=== PATIENT | male | born 1975 | race Two or more races ===

== ENCOUNTER 2018-01-29 11:10 | Observation (INO) | payer MEDICAID, OTHER ==
[~2018-01-29] VITALS: Ht 165.1 cm; Wt 54.6 kg
[2018-01-29] MEDS ORDERED: SODIUM CHLORIDE 0.9% 1,000 ML IV ONE (11:31)
[2018-01-29] MEDS ORDERED: SODIUM CHLORIDE 0.9% 1,000 ML IVB ONE (11:54)
[2018-01-29 12:01] LABS: Basophils # (auto) 0.1 uL; Basophils % (auto) 0.9 % (0.0-2.0); Eosinophils # (auto) 0.1 uL; Eosinophils % (auto) 1.4 % (0.0-7.0); Hematocrit 49.2 % (41.0-53.0); Hemoglobin 16.3 g/dL (13.5-17.5); Lymphocytes # (auto) 1.9 uL; Lymphocytes % (auto) 30.5 % (10.0-50.0); Mean Corpuscular Hemoglobin 28.3 pg (28.0-32.0); Mean Corpuscular Hgb Conc. 33.2 g/dL (32.0-36.0); Mean Corpuscular Volume 85.4 fL (80.0-100.0); Monocytes # (auto) 0.5 uL; Monocytes % (auto) 8.9 % (0.0-12.0); Neutrophils # (auto) 3.6 uL; Neutrophils % (auto) 58.3 % (37.0-80.0); Platelet Count (auto) 197 10^3/uL (140-450); Red Blood Cells 5.76 10^6/uL (4.5-5.90); Red Cell Distribution Width 13.2 % (11.8-14.3); White Blood Cell 6.1 10^3/uL (4.4-10.8)
[2018-01-29 12:08] LABS: Urine Bacteria NONE SEEN /hpf (None Seen); Urine Blood Negative /uL (Negative); Urine Specific Gravity 1.037 (1.001-1.035); Urine WBC 1 /hpf (0 - 3)
[2018-01-29 12:23] LABS: Albumin 4.1 g/dL (3.4-5.0); BUN/Creatinine Ratio 5.6; Bilirubin, Total 1.9 mg/dL (0.2-1.0); Calcium 8.9 mg/dL (8.5-10.1); Potassium 3.9 mmol/L (3.5-5.1); Total Protein 7.5 g/dL (6.4-8.2)
[2018-01-29 12:33] LABS: Partial Thromboplastin Time 28.8 sec (23.78-33.04); Prothrombin Time 10.7 sec (9.27-12.13)
[2018-01-29 13:30] VITALS: BP 110/88
[2018-01-29] MEDS ORDERED: InsuLIN REG 1unit/0.01ml Soln (100units/ml) SC ONE (14:45)
== END 2018-01-29 15:47 | disposition home or self-care (01) | DRG 420 ==
LOC: ER 11:10 → OVERFLOW 11:11 → ER 15:47
PROVIDERS: ADMIT Family Medicine; ATTEND Family Medicine
DX: E11.65 Type 2 diabetes mellitus with hyperglycemia (principal); E11.42 Type 2 diabetes mellitus with diabetic polyneuropathy
CPT/HCPCS: 36415; 71046; 80053; 81001; 82150; 82962; 83690; 83735; 85025; 85610; 85730; 96360; 96372; 99285; G0378; J1815; 94761

== ENCOUNTER 2018-02-01 15:30 | Inpatient (IN) | payer MEDICAID, OTHER ==
[~2018-02-01] VITALS: Ht 153.7 cm; Wt 57.5 kg
[2018-02-01] MEDS ORDERED: SODIUM CHLORIDE 0.9% 1,000 ML IV ONE ×2 (15:51)
[2018-02-01] MEDS ORDERED: InsuLIN REG 1unit/0.01ml Soln (100units/ml) IV ONE ×2 (16:00→20:15)
[2018-02-01 16:14] LABS: Basophils # (auto) 0.1 uL; Basophils % (auto) 0.8 % (0.0-2.0); Eosinophils # (auto) 0.1 uL; Eosinophils % (auto) 0.8 % (0.0-7.0); Hematocrit 44.4 % (41.0-53.0); Hemoglobin 15.2 g/dL (13.5-17.5); Lymphocytes # (auto) 2.1 uL; Mean Corpuscular Hemoglobin 28.8 pg (28.0-32.0); Mean Corpuscular Hgb Conc. 34.4 g/dL (32.0-36.0); Mean Corpuscular Volume 83.8 fL (80.0-100.0); Monocytes # (auto) 0.6 uL; Monocytes % (auto) 9.2 % (0.0-12.0); Neutrophils # (auto) 3.8 uL; Neutrophils % (auto) 57.2 % (37.0-80.0); Platelet Count (auto) 175 10^3/uL (140-450); Red Cell Distribution Width 13.2 % (11.8-14.3); White Blood Cell 6.7 10^3/uL (4.4-10.8)
[2018-02-01 16:28] LABS: Calcium 9.2 mg/dL (8.5-10.1); Potassium 4.1 mmol/L (3.5-5.1)
[2018-02-01 16:37] LABS: Bilirubin, Total 1.6 mg/dL (0.2-1.0); Total Protein 7.4 g/dL (6.4-8.2)
[2018-02-01] MEDS ORDERED: SODIUM CHLORIDE 0.9% 1,000 ML IVB ONE (20:06)
[2018-02-01 20:29] LABS: Urine Bacteria NONE SEEN /hpf (None Seen); Urine Blood Negative /uL (Negative); Urine Hyaline Cast FEW /lpf (0 - 2); Urine Specific Gravity 1.035 (1.001-1.035); Urine WBC <1 /hpf (0 - 3)
[2018-02-01] MEDS ORDERED: ONDANSETRON HCL 4 MG/2 ML VIAL IV PRN (22:15)
[2018-02-01] MEDS ORDERED: DEXTROSE (50%) 50ML SYRG IV PRN (22:15)
[2018-02-01] MEDS ORDERED: TEMAZEPAM 15 MG CAP PO PRN (22:15)
[2018-02-01] MEDS ORDERED: ACETAMINOPHEN 325 MG TAB PO PRN (22:15)
[2018-02-01] MEDS: SODIUM CHLORIDE 0.9% 1,000 ML IV SCH (22:32)
[2018-02-02] MEDS: ACCU-CHEK COMFORT CURVE STRIP VI SCH ×6 (00:02→21:49)
[2018-02-02] MEDS: InsuLIN REG 1unit/0.01ml Soln (100units/ml) SC SCH ×5 (00:07→17:00)
[2018-02-02 02:20] VITALS: BP 94/59
[2018-02-02 02:45] VITALS: BP 94/59
[2018-02-02] MEDS ORDERED: GABA-339 PO (03:35)
[2018-02-02] MEDS ORDERED: PANC12002 PO (03:35)
[2018-02-02] MEDS ORDERED: METF-370 PO (03:35)
[2018-02-02] MEDS ORDERED: MECL-87 PO (03:35)
[2018-02-02 05:00] VITALS: BP 93/58
[2018-02-02] MEDS: GABAPENTIN 300 MG CAP PO SCH ×3 (05:35→21:49)
[2018-02-02] MEDS: FAMOTIDINE 20 MG TAB PO SCH ×2 (10:14→21:49)
[2018-02-02] MEDS: SODIUM CHLORIDE 0.9% 1,000 ML IV SCH (10:41)
[2018-02-02 12:00] VITALS: BP 95/65
[2018-02-02] MEDS ORDERED: INSULIN LANTUS (GLARGINE) 1 /0.01ml (100units/ml) SC ONE (15:30)
[2018-02-02 15:31] LABS: BUN/Creatinine Ratio 11.8; Calcium 8.1 mg/dL (8.5-10.1); Potassium 3.7 mmol/L (3.5-5.1)
[2018-02-02 16:00] VITALS: BP 117/72
[2018-02-02] MEDS ORDERED: DEXTROSE (50%) 50ML SYRG IV PRN (16:15)
[2018-02-02 21:42] VITALS: BP 102/69
[2018-02-02] MEDS ORDERED: INSULIN LANTUS (GLARGINE) 1 /0.01ml (100units/ml) SC SCH (22:00)
[2018-02-02] MEDS ORDERED: InsuLIN REG 1unit/0.01ml Soln (100units/ml) SC SCH (22:00)
[2018-02-03 04:55] VITALS: BP 106/70
[2018-02-03] MEDS: InsuLIN REG 1unit/0.01ml Soln (100units/ml) SC SCH (06:37)
[2018-02-03] MEDS: GABAPENTIN 300 MG CAP PO SCH (06:37)
[2018-02-03] MEDS: ACCU-CHEK COMFORT CURVE STRIP VI SCH (06:38)
[2018-02-03] MEDS ORDERED: INSULIN LANTUS (GLARGINE) 1 /0.01ml (100units/ml) SC SCH (07:00)
[2018-02-03 07:26] VITALS: BP 102/67
[2018-02-03] MEDS: FAMOTIDINE 20 MG TAB PO SCH (10:48)
== END 2018-02-03 11:00 | disposition home or self-care (01) | DRG 420 ==
LOC: ER 15:30 → OVERFLOW 15:31 → WEST WING 02-02 02:15
PROVIDERS: ADMIT Nurse Practitioner; ATTEND Internal Medicine
DX: E11.65 Type 2 diabetes mellitus with hyperglycemia (principal); K86.1 Other chronic pancreatitis; E11.40 Type 2 diabetes mellitus with diabetic neuropathy, unspecified; E87.1 Hypo-osmolality and hyponatremia; E11.319 Type 2 diabetes mellitus with unspecified diabetic retinopathy without macular edema; E86.0 Dehydration; Z79.4 Long term (current) use of insulin; Z91.19 Patient's noncompliance with other medical treatment and regimen; Z82.49 Family history of ischemic heart disease and other diseases of the circulatory system; Z83.3 Family history of diabetes mellitus
CPT/HCPCS: 36415; 36600; 71045; 80048; 80053; 81001; 82010; 82805; 82962; 83036; 85025; 93005; 96361; 96374; 99291; J1815

== ENCOUNTER 2018-10-20 13:18 | Emergency (ER) | payer MEDICAID ==
[~2018-10-20] VITALS: Ht 162.6 cm; Wt 54.0 kg
[~2018-10-20 13:18] MED LIST: GABA-339 PO; MECL-87 PO; METF-370 PO; METO10TA3 PO; PANC12002 PO
[2018-10-20 13:45] VITALS: BP 109/79
[2018-10-20 14:26] LABS: Basophils # (auto) 0 uL; Basophils % (auto) 0.8 % (0.0-2.0); Eosinophils # (auto) 0 uL; Eosinophils % (auto) 0.8 % (0.0-7.0); Hemoglobin 13.9 g/dL (13.5-17.5); Lymphocytes # (auto) 2.3 uL; Lymphocytes % (auto) 36.1 % (10.0-50.0); Mean Corpuscular Hemoglobin 28.7 pg (28.0-32.0); Mean Corpuscular Hgb Conc. 33.9 g/dL (32.0-36.0); Mean Corpuscular Volume 84.7 fL (80.0-100.0); Monocytes # (auto) 0.7 uL; Neutrophils # (auto) 3.2 uL; Neutrophils % (auto) 51.3 % (37.0-80.0); Nucleated Red Blood Cells % 0.1 %; Platelet Count (auto) 163 10^3/uL (140-450); Red Blood Cells 4.83 10^6/uL (4.5-5.90); Urine WBC None Seen /hpf (0 - 3); White Blood Cell 6.3 10^3/uL (4.4-10.8)
[2018-10-20 14:38] LABS: Potassium 3.3 mmol/L (3.5-5.1)
[2018-10-20 14:41] LABS: Albumin 3.7 g/dL (3.4-5.0); Calcium 8.6 mg/dL (8.5-10.1); Urine Bacteria NONE SEEN /hpf (None Seen); Urine Blood Negative /uL (Negative); Urine Specific Gravity 1.042 (1.001-1.035)
[2018-10-20 14:47] LABS: BUN/Creatinine Ratio 10.5; Total Protein 6.4 g/dL (6.4-8.2)
== END 2018-10-20 18:15 | disposition home or self-care (01) ==
LOC: ER 13:20
DX: E11.65 Type 2 diabetes mellitus with hyperglycemia (principal); Z79.899 Other long term (current) drug therapy; Z79.84 Long term (current) use of oral hypoglycemic drugs
CPT/HCPCS: 36415; 71046; 80053; 81001; 82962; 85025

== ENCOUNTER 2025-02-21 11:00 | Inpatient (IN) | payer MEDICAID ==
[~2025-02-21] VITALS: Ht 165.1 cm; Wt 56.0 kg
[~2025-02-21 11:00] MED LIST changes: -MECL-87 PO; +MECL-90 PO; -PANC12002 PO; +PANC1CAP54 PO
--- NOTE | 2025-02-21 11:10 | ED.PDOC ---
History of Present Illness HPI Comments 50-year-old male brought by paramedics from home because of nausea vomiting which started at 2:00 a.m. this morning. Patient never had symptoms like this in the past. Denies use of marijuana. Does have a history of diabetes for which he takes insulin. Denies any other symptoms. Time Seen by MD: 11:06 Primary Care Provider: GAYLE CANTRELL Reviewed Notes: Nurses Notes, Medications, Allergies Allergies: Coded Allergies: NO KNOWN ALLERGIES (Unverified , 01/29/18) Home Meds Reported Medications Metoclopramide Hcl (Metoclopramide Hcl) 10 Mg Tab, 10 MG PO for nausea for 30 Da ys, MG 06/26/18 Metformin Hydrochloride (Metformin Hcl) 500 Mg Tab, 1000 MG PO BID for 30 Days, MG 06/26/18 Pancreatic Enzymes (Creon) 12,000 Unt Cap, 11502 UNT PO, CAP 02/02/18 Meclizine Hcl (Meclizine Hcl) 25 Mg Tab, 25 MG PO BIDP for 30 Days, MG 02/02/18 Gabapentin (Gabapentin) 600 Mg Tab, 1000 MG PO QID for 30 Days, MG 02/02/18 Information Source: Patient, Emergency Med Personnel Mode of Arrival: EMS Severity: Moderate Timing: Hours Duration: Since onset Past Medical History PAST MEDICAL HISTORY: DM Surgical History: Denies all surgeries Family History Family History: No family hx of DM, No family hx of HTN Social History Smoker: Non-Smoker Alcohol: Denies ETOH Use Drugs: Denies Drug Use Lives In: Home Constitutional: denies: chills, diaphoresis, fatigue, fever, malaise, sweats, weakness, others EENTM: denies: blurred vision, double vision, ear bleeding, ear discharge, ear drainage, ear pain, ear ringing, eye pain, eye redness, hearing loss, mouth pain, mouth swelling, nasal discharge, nose bleeding, nose congestion, nose pain, photophobia, tearing, throat pain, throat swelling, voice changes, others Respiratory: denies: cough, hemoptysis, orthopnea, SOB at rest, shortness of breath, SOB with excertion, stridor, wheezing, others Cardiovascular: denies: chest pain, dizzy spells, diaphoresis, Dyspnea on exertion, edema, irregular heart beat, left arm pain, lightheadedness, palpitations, PND, syncope, others Gastrointestinal: reports: abdominal pain, nausea, vomiting; denies: abdomen distended, blood streaked bowels, constipated, diarrhea, dysphagia, difficulty swallowing, hematemesis, melena, poor appetite, poor fluid intake, rectal bleeding, rectal pain, others Genitourinary: denies: burning, dysuria, flank pain, frequency, hematuria, incontinence, penile discharge, penile sore, pain, testicle pain, testicle swelling, urgency, others Neurological: denies: dizziness, fainting, headache, left sided numbness, left sided weakness, numbness, paresthesia, pre-existing deficit, right sided numbness, right sided weakness, seizure, speech problems, tingling, tremors, weakness, others Musculoskeletal: denies: back pain, gout, joint pain, joint swelling, muscle p ain, muscle stiffness, neck pain, others Integumetry: denies: bruises, change in color, change in hair/nails, dryness, laceration, lesions, lumps, rash, wounds, others Allergic/Immunocompromised: denies: Difficulty Healing, Frequent Infections, Hives, Itching, others Hematologic/Lymphatic: denies: anemia, blood clots, easy bleeding, easy bruising, swollen glands, others Endocrine: denies: excessive hunger, excessive sweating, excessive thirst, excessive urination, flushing, intolerance to cold, intolerance to heat, unexplained weight gain, unexplained weight loss, others Psychiatric: denies: anxiety, bipolar disorder, depression, hopeless, panic disorder, schizophrenia, sleepless, suicidal, others Physical Exam General Appearance: Moderate Distress HEENT: Normal ENT Inspection, Pharynx Normal, TMs Normal Neck: Full Range of Motion, Non-Tender, Normal, Normal Inspection Respiratory: Chest Non-Tender, Lungs Clear, No Accessory Muscle Use, No Respiratory Distress, Normal Breath Sounds Cardiovascular: No Edema, No JVD, No Murmur, No Gallop, Normal Peripheral Pulses, Regular Rate/Rhythm Breast Exam: Deferred Gastrointestinal: Diffuse Genitalia: Deferred Pelvic: Deferred Rectal: Deferred Extremities: No calf tenderness, Normal capillary refill, Normal inspection, Normal range of motion, Non-tender, No pedal edema Musculoskeletal : Apperance: Normal Neurologic: Alert, 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 Was a procedure done?: No Differential Dx Considerations may include: Colitis Electrolyte imbalance X-Ray, Labs, Meds, VS Vital Signs Date Time Temp Pulse Resp B/P (MAP) Pulse Ox O2 Delivery O2 Flow Rate FiO2 02/21/25 12:38 120 19 129/92 02/21/25 12:30 120 16 98 Room Air 02/21/25 12:30 98.3 120 16 129/92 (104) 98 98.3 02/21/25 11:40 98.9 100 24 128/58 100 98.9 Lab Test 02/21/25 12:41 Range/Units White Blood Count 11.3 H 4.4-10.8 10^3/uL Red Blood Count 5.23 4.5-5.90 10^6/uL Hemoglobin 14.8 13.5-17.5 g/dL Hematocrit 43.7 41.0-53.0 % Mean Corpuscular Volume 83.6 80.0-100.0 fL Mean Corpuscular Hemoglobin 28.3 28.0-32.0 pg Mean Corpuscular Hemoglobin Concent 33.9 32.0-36.0 g/dL Red Cell Distribution Width 14.2 11.8-14.3 % Platelet Count 178 140-450 10^3/uL Mean Platelet Volume 10.1 6.9-10.8 fL Neutrophils (%) (Auto) 88.5 H 37.0-80.0 % Lymphocytes (%) (Auto) 6.6 L 10.0-50.0 % Monocytes (%) (Auto) 4.7 0.0-12.0 % Eosinophils (%) (Auto) 0.0 0.0-7.0 % Basophils (%) (Auto) 0.2 0.0-2.0 % Neutrophils # (Auto) 10.0 H 1.6-8.6 10 ^3/uL Lymphocytes # (Auto) 0.7 0.4-5.4 10 ^3/uL Monocytes # (Auto) 0.5 0-1.3 10 ^3/uL Eosinophils # (Auto) 0 0-0.8 10 ^3/uL Basophils # (Auto) 0 0-0.2 10 ^3/uL Nucleated Red Blood Cells 0.1 % Sodium Level 141 136-145 mmol/L Potassium Level 3.6 3.5-5.1 mmol/L Chloride Level 101 98-107 mmol/L Carbon Dioxide Level 25 20-31 mmol/L Anion Gap 15 5-15 Blood Urea Nitrogen 10 9-23 mg/dL Creatinine 0.95 0.700-1.30 mg/dL Glomerular Filtration Rate Calc 98 >90 mL/min BUN/Creatinine Ratio 10.5 10.0-20.0 Serum Glucose 194 H 74-106 mg/dL Calcium Level 9.7 8.7-10.4 mg/dL Current Medications Medications (Trade) Dose Ordered Sig/Cramen Route Start Time Stop Time Status Last Admin Ondansetron HCl (Zofran) 4 mg ONCE ONCE IV 02/21/25 12:00 02/21/25 12:01 DC 02/21/25 12:37 Sodium Chloride 1,000 ml @ 1,000 mls/hr Q1H ONCE IVB 02/21/25 12:00 02/21/25 12:59 DC 02/21/25 12:37 Morphine Sulfate 4 mg ONCE ONCE IV 02/21/25 12:00 02/21/25 12:01 DC 02/21/25 12:38 Patient alert. Complaining of abdominal pain. Vitals stable. Answering questions. CT scan of the abdomen does show colitis. Blood sugar elevated. Establish intravenous access. Was given fluids pain Was given morphine. Was given Zofran. WBC elevated. Was given Zosyn. Was given Flagyl. Explained to the patient. Continue monitoring. Time of 1ST Reevaluation: 17:01 Reevaluation 1ST: Unchanged Patient Education/Counseling: Diagnosis, Treatment, Prognosis Family Education/Counseling: No Family Present SEPSIS Sepsis Screen Physician Orders Urinalysis (02/21/25 11:47) Ct Ab Pel Wo Con-No Oral Or Iv (02/21/25 14:41) Morphine Sulfate Injection (02/21/25 17:00) Ondansetron Hcl (Zofran) (02/21/25 17:00) Vital Signs Date Time Temp Pulse Resp B/P (MAP) Pulse Ox O2 Delivery O2 Flow Rate FiO2 02/21/25 12:38 120 19 129/92 02/21/25 12:30 120 16 98 Room Air 8/21/25 12:30 98.3 120 16 129/92 (104) 98 98.3 02/21/25 11:40 98.9 100 24 128/58 100 98.9 Laboratory Tests Test 02/21/25 12:41 White Blood Count 11.3 10^3/uL (4.4-10.8) H Medications Medications Dose Ordered Sig/Carmen Route Start Time Stop Time Status Last Admin Dose Admin Morphine Sulfate 4 mg ONCE ONCE IV 02/21/25 12:00 02/21/25 12:01 DC 02/21/25 12:38 Ondansetron HCl 4 mg ONCE ONCE IV 02/21/25 12:00 02/21/25 12:01 DC 02/21/25 12:37 Sodium Chloride 1,000 ml @ 1,000 mls/hr Q1H ONCE IVB 02/21/25 12:00 02/21/25 12:59 DC 02/21/25 12:37 Departure 1 Departure Time of Disposition: 17:02 Impression: Primary Impression: Acute abdominal pain Additional Impressions: Non-specific colitis Uncontrolled diabetes mellitus Qualified Codes: E13.65 - Other specified diabetes mellitus with hyperglycemia Disposition: ADMITTED INPATIENT Admit to: Med Surg Condition: Guarded Critical Care Note Critical Care Time?: No Stability Stability form required: No Heart Score Heart Score: Heart Score Response (Comments) Value History N/A 0 EKG N/A 0 Age N/A 0 Risk Factors N/A 0 Troponin N/A 0 Total 0 JAMIE BRUNER MD Feb 21, 2025 11:09
[2025-02-21] MEDS: SODIUM CHLORIDE 0.9% 1,000 ML IVB ONE (12:37)
[2025-02-21] MEDS: ONDANSETRON HCL 4 MG/2 ML VIAL IV ONE ×2 (12:37→17:02)
[2025-02-21] MEDS: MORPHINE SULFATE 4 MG/ML SYR/VIAL IV ONE ×2 (12:38→17:01)
[2025-02-21 13:07] LABS: Hematocrit 43.7 % (41.0-53.0); Hemoglobin 14.8 g/dL (13.5-17.5); Mean Corpuscular Hemoglobin 28.3 pg (28.0-32.0); Mean Corpuscular Volume 83.6 fL (80.0-100.0); Nucleated Red Blood Cells % 0.1 %
[2025-02-21 13:08] LABS: Chloride 101 mmol/L (98-107); Potassium 3.6 mmol/L (3.5-5.1); Sodium 141 mmol/L (136-145)
[2025-02-21 13:09] LABS: Anion Gap 15 (5-15); Carbon Dioxide 25 mmol/L (20-31)
[2025-02-21 13:10] LABS: Calcium 9.7 mg/dL (8.7-10.4)
[2025-02-21 13:15] LABS: BUN/Creatinine Ratio 10.5 (10.0-20.0); Blood Urea Nitrogen 10 mg/dL (9-23)
[2025-02-21 13:18] LABS: Glucose 194 mg/dL (74-106)
--- NOTE | 2025-02-21 15:14 | DVH ---
Indication: colitis Technique: CT axial images of the abdomen and pelvis are obtained without contrast. Coronal and sagit aditi reformats were obtained. Radiation Dose Information: CTDI volume is 5.1 mGy. Dose-length product is 268 mGy*cm Comparison: None FINDINGS: There is limited interpretation of the abdomen and pelvis without administration of intravenous contr ast. Lung bases demonstrate no pleural effusion. There is mild bilateral lower lobe tree-in-bud nodularity , [id number]-right. 3 mm left lower lobe pulmonary nodule. Adrenal glands, spleen unremarkable. Pancreatic parenchymal calcifications, atrophy. Liver unremarka ble in shape. No CT evidence for cholelithiasis. No hydronephrosis, nephrolithiasis. Stomach partially distended. Small bowel loops are normal in caliber. Large bowel relatively nondistended. There is diffuse colonic wall thickening. No secondary signs for appendicitis. Bladder partially distended. No free pelvic fluid. No inguinal lymphadenopathy. Mild thoracolumbar degenerative disc disease. IMPRESSION: Limited evaluation without contrast. Diffuse colonic wall thickening may represent colitis, inflammatory bowel disease. Pancreatic parenchymal calcifications and atrophy likely sequela of chronic pancreatitis changes. Bilateral lower lobe pulmonary tree-in-bud nodularity, [id number] which can be secondary to bronchiolitis, aspiration., atypical infection. 3 mm left lower lobe pulmonary nodule. Recommend follow-up per Fleischner society criteria. Other findings as described.
[2025-02-21] MEDS: SODIUM CHLORIDE 0.9% 1,000 ML IV ONE (17:22)
[2025-02-21] MEDS: PIPERACILLIN-TAZOB 3.375GM 100 ML IV ONE (21:39)
[2025-02-21] MEDS ORDERED: MORPHINE SULFATE INJ 2 MG/ml SYRG IV PRN (22:00)
[2025-02-21] MEDS ORDERED: ACETAMINOPHEN 325 MG TAB PO PRN (22:00)
[2025-02-21] MEDS: PIPERACILLIN-TAZOB 3.375GM 100 ML IV SCH (22:00)
[2025-02-21] MEDS ORDERED: NITROGLYCERIN 0.4 MG SL TAB SL PRN (22:00)
[2025-02-21] MEDS: SODIUM CHLORIDE 0.9% 1,000 ML IV SCH (22:00)
[2025-02-21 23:00] LABS: Urine Protein, UAD 1+ (Negative)
[2025-02-22] MEDS: ONDANSETRON HCL 4 MG/2 ML VIAL IV PRN (03:36)
[2025-02-22] MEDS: MORPHINE SULFATE INJ 2 MG/ml SYRG IV PRN (03:36)
[2025-02-22 03:43] VITALS: BP 145/94; PULSE 103; RESP 16; TEMP 98.7; O2SAT 98
[2025-02-22 05:00] VITALS: BP 149/98; PULSE 104; RESP 20; TEMP 98.5; O2SAT 97
[2025-02-22 06:00] LABS: Alanine Aminotransferase 18 U/L (7-40); Anion Gap 11 (5-15); BUN/Creatinine Ratio 11.7 (10.0-20.0); Blood Urea Nitrogen 11 mg/dL (9-23); Calcium 9.3 mg/dL (8.7-10.4); Carbon Dioxide 28 mmol/L (20-31); Chloride 105 mmol/L (98-107); Hematocrit 40.4 % (41.0-53.0); Hemoglobin 13.6 g/dL (13.5-17.5); Mean Corpuscular Hemoglobin 28.4 pg (28.0-32.0); Mean Corpuscular Volume 84.3 fL (80.0-100.0); Nucleated Red Blood Cells % 0.0 %; Potassium 3.5 mmol/L (3.5-5.1); Sodium 144 mmol/L (136-145); Total Protein 7.3 g/dL (5.7-8.2)
[2025-02-22 06:01] LABS: Albumin 4.3 g/dL (3.2-4.8)
[2025-02-22 06:07] LABS: Alkaline Phosphatase 148 U/L (46-116); Bilirubin, Total 1.5 mg/dL (0.2-1.0); Glucose 131 mg/dL (74-106)
[2025-02-22] MEDS: HYDROcodone-ACET 5/325MG TAB PO PRN (06:36)
[2025-02-22 09:00] VITALS: BP 148/86; PULSE 69; RESP 18; TEMP 98.7; O2SAT 90
[2025-02-22 13:00] VITALS: BP 128/75; PULSE 51; RESP 18; TEMP 98.6; O2SAT 100
--- NOTE | 2025-02-22 13:22 | DVHPN2 ---
Progress Note - Dictate Date Seen: Feb 22, 2025 Medical Necessity Reason Pt with a Central, PICC or Fol: No vital signs Vital Sign Date Time Temp Pulse Resp B/P (MAP) Pulse Ox O2 Delivery O2 Flow Rate FiO2 02/22/25 13:00 98.6 51 18 128/75 (92) 100 98.6 02/22/25 03:43 Room Air* 0 21 Total Intake and Output 02/21/25 02/21/25 02/22/25 15:00 23:00 07:00 Intake Total 100 ml 100 ml Output Total 200 ml Balance 100 ml -100 ml medications Current Medications Medications Dose Ordered Sig/Carmen Route Start Time Stop Time Status Last Admin Dose Admin Sodium Chloride 1,000 ml @ 120 mls/hr Q8H20M IV 02/21/25 22:00 02/22/25 10:39 Acetaminophen 325 mg Q4HP PRN PO 02/21/25 22:00 Acetaminophen/ Hydrocodone Bitart 1 tab Q4HP PRN PO 02/21/25 22:00 02/22/25 06:36 Ondansetron HCl 4 mg Q4HP PRN IV 02/21/25 22:00 02/22/25 11:29 Morphine Sulfate 2 mg Q4HPRN PRN IV 02/21/25 22:00 02/22/25 11:30 Nitroglycerin 0.4 mg Q5MINP PRN SL 02/21/25 22:00 Morphine Sulfate 2 mg Q30M PRN IV 02/21/25 22:00 Piperacillin Sod/ Tazobactam Sod 100 ml @ 25 mls/hr Q8HR IV 02/21/25 22:00 02/22/25 06:07 Patient Own Medication 1,000 mg QID PO 02/22/25 18:00 UNV Famotidine 20 mg Q12HR IV 02/22/25 22:00 UNV Enoxaparin Sodium 40 mg DAILY SC 02/23/25 10:00 UNV Diagnostic Test (Pha) 1 strip ACHS 02/22/25 17:00 UNV Insulin Human Regular HS SC 02/22/25 22:00 UNV Insulin Human Regular AC SC 02/22/25 17:00 UNV Dextrose 50 ml UD PRN IV 02/22/25 13:30 UNV objective General Appearance: alert, no distress HEENT: EOMI, PERRLA, normal external inspect of ears, no icterus, no nasal drainage Neck: no carotid bruit, no jugular venous distention (JVD), no lymphadenopathy Chest: normal thorax Respiratory: clear to auscultation, normal air movement Cardiovascular: regular rate and rhythm, no diastolic murmur, no jugular venous distention (JVD), no rub, no systolic murmur Abdominal: soft, no hepatomegaly, no mass, no splenomegaly, no tenderness Genitourinary: grossly normal external Musculoskeletal: no joint tenderness, no swelling Extremities: normal pulses, no calf tenderness, no clubbing, no cyanosis, no edema Skin: no bruising, no jaundice, no rash Neurological: alert, No focal deficit laboratory and microbiology Laboratory Tests 02/22/25 05:06 Test 02/22/25 05:06 Range/Units Serum Glucose 131 H 74-106 mg/dL Problem List 1. Colitis Monitor, GI consult, IV abx, IV fluids, PPI 2. Atypical lung infection Monitor, IV abx, pulmonary consult 3. DM II Monitor, insulin ss 4. Pulmonary nodule Monitor, pulmonary consult, DVT prophylaxis Assessment/Plan Subjective: Patient is awake and alert. Objective: Patient is admitted for abdominal pain related to colitis. He was also noted to have atypical changes on his lung with a pulmonary nodule. Pulmonary has been consulted. Plan: Continue antibiotics with Zosyn. Await Pulmonary and GI consult recommendations. Plan discussed with: Patient, Other BARB GLASS NP Feb 22, 2025 13:22
--- NOTE | 2025-02-22 13:22 | DVHHP2 ---
Admitting Diagnosis: Nausea and vomiting History of Present Illness 50 yo male patient c/o nausea and vomiting. Patient denies having these symptoms in the past. While in the emergency department the patient was evaluated by the provider, As per provider: Labs, vital signs, and imagining monitored. Patient will be admitted for further evaluation and treatment. I discussed admission with the patient/family and is in agreement to treatment plan. Patient Family History: Alcoholism G8 FATHER, Onset:Unknown Arthritis G8 MOTHER, Onset:Unknown Hypertension G8 FATHER, Onset:Unknown Allergies: Coded Allergies: NO KNOWN ALLERGIES (Unverified , 01/29/18) Home Meds Reported Medications Metoclopramide Hcl (Metoclopramide Hcl) 10 Mg Tab, 10 MG PO for nausea for 30 Days, MG 06/26/18 Metformin Hydrochloride (Metformin Hcl) 500 Mg Tab, 1000 MG PO BID for 30 Days, MG 06/26/18 Pancreatic Enzymes (Creon) 12,000 Unt Cap, 27441 UNT PO, CAP 02/02/18 Meclizine Hcl (Meclizine Hcl) 25 Mg Tab, 25 MG PO BIDP for 30 Days, MG 02/02/18 Gabapentin (Gabapentin) 600 Mg Tab, 1000 MG PO QID for 30 Days, MG 02/02/18 Current Medications Current Medications Medications (Trade) Dose Ordered Sig/Carmen Route PRN Reason Start Time Stop Time Status Last Admin Sodium Chloride 1,000 ml @ 120 mls/hr Q8H20M IV 02/21/25 22:00 02/22/25 16:23 Acetaminophen (Tylenol Tablet) 325 mg Q4HP PRN PO MILD PAIN (1-3 PAIN SCALE) 02/21/25 22:00 Acetaminophen/ Hydrocodone Bitart ([place] 5/325MG Tab) 1 tab Q4HP PRN PO MODERATE PAIN (4-6 PAIN SCALE) 02/21/25 22:00 02/22/25 17:46 Ondansetron HCl (Zofran) 4 mg Q4HP PRN IV NAUSEA / VOMITING 02/21/25 22:00 02/22/25 11:29 Morphine Sulfate 2 mg Q4HPRN PRN IV SEVERE PAIN (7-10 PAIN SCALE) 02/21/25 22:00 02/22/25 11:30 Nitroglycerin (Ntrostat Sublingual) 0.4 mg Q5MINP PRN SL FOR CHEST PAIN 02/21/25 22:00 Morphine Sulfate 2 mg Q30M PRN IV FOR CHEST PAIN 02/21/25 22:00 Piperacillin Sod/ Tazobactam Sod 100 ml @ 25 mls/hr Q8HR IV 02/21/25 22:00 02/22/25 16:23 Gabapentin (Neurontin Capsule) 1,000 mg QID PO 02/22/25 14:05 Hold Famotidine (Pepcid Injection) 20 mg Q12HR IV 02/22/25 22:00 Enoxaparin Sodium (Lovenox) 40 mg DAILY SC 02/23/25 10:00 Diagnostic Test (Pha) (Accu-Chek Comfort Curve T) 1 strip ACHS 02/22/25 17:00 02/22/25 17:00 Insulin Human Regular (InsuLIN R) HS SC 02/22/25 22:00 Insulin Human Regular (InsuLIN R) AC SC 02/22/25 17:00 02/22/25 17:00 Dextrose 50 ml UD PRN IV Blood Sugar LESS THAN 60 02/22/25 13:30 Review of Systems Constitutional: denies chills, denies fever, denies malaise Eyes: denies eye pain, denies vision change ENT: denies ear pain, denies headache, denies nasal congestion, denies painful swallowing, denies voice change Cardiovascular: denies chest pain, denies edema, denies orthopnea, denies palpitations, denies paroxysmal nocturnal dyspnea Respiratory: denies cough, denies shortness of breath Gastrointestinal: denies constipation, denies diarrhea, denies nausea, denies vomiting Genitourinary: denies dysuria, denies frequent urination, denies urethral discharge Musculoskeletal: denies back pain, denies joint pain, denies muscle pain Skin: denies bruising, denies itching, denies rash Neurological: denies focal weakness, denies headache, denies sensory changes Psychiatric: denies anxiety, denies depression Endocrine: denies polydipsia, denies polyuria Hematologic/Lymphatic: denies easy bleeding, denies easy bruising, denies enlarged lymph nodes Allergic/Immunologic: denies allergy, denies hives Vital Signs Vital Signs Date Time Temp Pulse Resp B/P (MAP) Pulse Ox O2 Delivery O2 Flow Rate FiO2 02/22/25 17:00 98.7 104 18 152/93 (112) 100 98.7 02/22/25 14:30 Room Air* 0 21 Physical Exam General Appearance: alert, no distress HEENT: EOMI, PERRLA, normal external inspect of ears, no icterus, no nasal drainage Neck: no carotid bruit, no jugular venous distention (JVD), no lymphadenopathy Chest: normal thorax Respiratory: clear to auscultation, normal air movement Cardiovascular: regular rate and rhythm, no diastolic murmur, no jugular venous distention (JVD), no rub, no systolic murmur Abdominal: soft, no hepatomegaly, no mass, no splenomegaly, no tenderness Genitourinary: grossly normal external Musculoskeletal: no joint tenderness, no swelling Extremities: normal pulses, no calf tenderness, no clubbing, no cyanosis, no edema Skin: no bruising, no jaundice, no rash Neurological: alert, No focal deficit SEPSIS Sepsis Screen Date sepsis recognized/suspect: Feb 21, 2025 Time Sepsis recognized/suspect: 1999 Recent Procedure: No On Antibiotic Therapy: No Respiratory Rate >20: No Heart Rate >90: Yes Temp<36 C (96.8 F) or >38.3 C: No SBP <90 or MAP <65 mmHG: No New Acute Mental Status Change: No Is the patient on CPAP, BIPAP,: No Physician Orders Ct Ab Pel Wo Con-No Oral Or Iv (02/21/25 14:41) Admit (02/21/25 21:48) Sodium Chloride 0.9% (02/21/25 22:00) Acetaminophen Tablet (Tylenol Tablet) (02/21/25 22:00) Hydrocodone-Acet 5/325mg Tab ([place] 5/32 (02/21/25 22:00) Ondansetron Hcl (Zofran) (02/21/25 22:00) Morphine Sulfate Injection (02/21/25 22:00) Nitroglycerin Sublingual (Ntrostat Subli (02/21/25 22:00) Morphine Sulfate Injection (02/21/25 22:00) Stat Ekg For Chest Pain (02/21/25 21:48) Notify Md Of Changes From Base (02/21/25 21:48) Electronic Induction Hardener For 24 Hours (02/21/25 21:48) Emergency Dysrhythmia Protocol (02/21/25 21:48) Rhythm Strips Once Every Shift (02/21/25 21:48) Oxygen By Nasal Cannula (02/21/25 21:48) Piperacillin-Tazob 3.375gm (Zosyn 3.375g (02/21/25 22:00) *Consult / (02/22/25 13:18) * Gi Dvh Piccolo Mechanic (02/22/25 13:18) Gabapentin Capsule (Neurontin Capsule) (02/22/25 14:05) Famotidine Injection (Pepcid Injection) (02/22/25 22:00) Enoxaparin Sodium (Lovenox) (02/23/25 10:00) Glucose Blood (Accu-Chek Comfort Curve T (02/22/25 17:00) Insulin R (Human) (Insulin R) (02/22/25 22:00) Insulin R (Human) (Insulin R) (02/22/25 17:00) Dextrose 50% Syringe (02/22/25 13:30) Soft Diet (02/22/25 Lunch) Vital Signs Date Time Temp Pulse Resp B/P (MAP) Pulse Ox O2 Delivery O2 Flow Rate FiO2 02/22/25 17:00 98.7 104 18 152/93 (112) 100 98.7 02/22/25 14:30 Room Air* 0 21 02/22/25 13:00 98.6 51 18 128/75 (92) 100 98.6 02/22/25 12:00 70 18 128/75 02/22/25 11:30 69 18 148/86 02/22/25 09:00 98.7 69 18 148/86 (106) 90 98.7 02/22/25 05:00 98.5 104 20 149/98 (115) 97 98.5 02/22/25 04:06 102 15 135/76 02/22/25 03:43 16 98 Room Air* 0 21 02/22/25 03:43 98.7 103 16 145/94 (111) 98 98.7 02/22/25 03:36 103 16 145/95 02/21/25 22:46 98.8 113 16 118/71 (87) 95 98.8 02/21/25 20:00 98.6 107 16 118/73 (88) 96 98.6 02/21/25 19:45 Room Air* 0 21 02/21/25 17:01 123 19 122/93 02/21/25 13:08 120 20 112/61 02/21/25 12:38 120 19 129/92 02/21/25 12:30 120 16 98 Room Air 02/21/25 12:30 98.3 120 16 129/92 (104) 98 98.3 02/21/25 11:40 98.9 100 24 128/58 100 98.9 Laboratory Tests Test 02/21/25 12:41 02/22/25 05:06 White Blood Count 11.3 10^3/uL (4.4-10.8) H 11.8 10^3/uL (4.4-10.8) H Medications Medications Dose Ordered Sig/Carmen Route Start Time Stop Time Status Last Admin Dose Admin Diagnostic Test (Pha) 1 strip ACHS 02/22/25 17:00 02/22/25 17:00 Insulin Human Regular AC SC 02/22/25 17:00 02/22/25 17:00 Results Labs Test 02/22/25 16:28 02/22/25 05:06 02/21/25 20:21 Range/Units POC Glucose 195 H 70-106 mg/dl White Blood Count 11.8 H 4.4-10.8 10^3/uL Red Blood Count 4.79 4.5-5.90 10^6/uL Hemoglobin 13.6 13.5-17.5 g/dL Hematocrit 40.4 L 41.0-53.0 % Mean Corpuscular Volume 84.3 80.0-100.0 fL Mean Corpuscular Hemoglobin 28.4 28.0-32.0 pg Mean Corpuscular Hemoglobin Concent 33.8 32.0-36.0 g/dL Red Cell Distribution Width 14.4 H 11.8-14.3 % Platelet Count 164 140-450 10^3/uL Mean Platelet Volume 10.4 6.9-10.8 fL Neutrophils (%) (Auto) 83.0 H 37.0-80.0 % Lymphocytes (%) (Auto) 9.2 L 10.0-50.0 % Monocytes (%) (Auto) 7.4 0.0-12.0 % Eosinophils (%) (Auto) 0.0 0.0-7.0 % Basophils (%) (Auto) 0.4 0.0-2.0 % Neutrophils # (Auto) 9.8 H 1.6-8.6 10 ^3/uL Lymphocytes # (Auto) 1.1 0.4-5.4 10 ^3/uL Monocytes # (Auto) 0.9 0-1.3 10 ^3/uL Eosinophils # (Auto) 0 0-0.8 10 ^3/uL Basophils # (Auto) 0 0-0.2 10 ^3/uL Nucleated Red Blood Cells 0.0 % Sodium Level 144 136-145 mmol/L Potassium Level 3.5 3.5-5.1 mmol/L Chloride Level 105 98-107 mmol/L Carbon Dioxide Level 28 20-31 mmol/L Anion Gap 11 5-15 Blood Urea Nitrogen 11 9-23 mg/dL Creatinine 0.94 0.700-1.30 mg/dL Glomerular Filtration Rate Calc 99 >90 mL/min BUN/Creatinine Ratio 11.7 10.0-20.0 Serum Glucose 131 H 74-106 mg/dL Calcium Level 9.3 8.7-10.4 mg/dL Total Bilirubin 1.5 H 0.2-1.0 mg/dL Aspartate Amino Transferase (AST) 35 13-40 U/L Alanine Aminotransferase (ALT) 18 7-40 U/L Alkaline Phosphatase 148 H 46-116 U/L Total Protein 7.3 5.7-8.2 g/dL Albumin 4.3 3.2-4.8 g/dL Urine Color Yellow Yellow Urine Clarity Turbid H Clear Urine pH 5.5 5.0-9.0 Urine Specific [place] 1.027 1.001-1.035 Urine Protein 1+ H Negative Urine Ketones 2+ H Negative Urine Blood Negative Negative /uL Urine Nitrite Negative Negative Urine Bilirubin Negative Negative Urine Urobilinogen Normal Negative mg/dL Urine Leukocyte Esterase 1+ Negative /uL Urine RBC None seen 0 - 3 /hpf Urine Microscopic WBC 15 H 0-3 /HPF Urine Squamous Epithelial Cells Few <5 /hpf Urine Bacteria None seen None Seen /hpf Urine Hyaline Casts Few 0 - 2 /lpf Urine Mucus Few None Seen Urine Glucose 1+ H Normal mg/dL Plan 1. Colitis Monitor, GI consult, IV abx, IV fluids, PPI 2. Atypical lung infection Monitor, IV abx, pulmonary consult 3. DM II Monitor, insulin ss 4. Pulmonary nodule Monitor, pulmonary consult, DVT prophylaxis Plan discussed with: Patient, Other BARB GLASS NP Feb 22, 2025 13:22
[2025-02-22] MEDS ORDERED: DEXTROSE (50%) 50ML SYRG IV PRN (13:30)
[2025-02-22] MEDS: GABAPENTIN 400 MG CAP PO SCH (14:05)
[2025-02-22 17:00] VITALS: BP 152/93; PULSE 104; RESP 18; TEMP 98.7; O2SAT 100
[2025-02-22] MEDS: InsuLIN REG 1unit/0.01ml Soln (100units/ml) SC SCH ×2 (17:00→21:38)
[2025-02-22] MEDS: ACCU-CHEK COMFORT CURVE STRIP VI SCH (17:00)
[2025-02-22] MEDS: FAMOTIDINE (10MG/ML) 2ML VL IV SCH (21:39)
[2025-02-22 22:04] VITALS: BP 128/86; PULSE 87; RESP 16; TEMP 97.7; O2SAT 98
[2025-02-23] VITALS (8 sets, daily range): BP systolic 122–164; BP diastolic 85–105; PULSE 76–87; RESP 12–18; TEMP 97.6–99.1; O2SAT 96–99
[2025-02-23] MEDS: ENOXAPARIN SOD 40 MG/0.4 ML SYRINGE SC SCH (10:59)
--- NOTE | 2025-02-23 14:58 | DVHPN2 ---
Progress Note - Dictate Date Seen: Feb 23, 2025 Medical Necessity Reason Pt with a Central, PICC or Fol: No vital signs Vital Sign Date Time Temp Pulse Resp B/P (MAP) Pulse Ox O2 Delivery O2 Flow Rate FiO2 02/23/25 12:37 98.4 87 16 164/94 (117) 99 98.4 02/23/25 08:00 Room Air* 0 21 Total Intake and Output 02/22/25 02/22/25 02/23/25 15:00 23:00 07:00 Intake Total 600 ml 1936.88 ml Output Total 500 ml Balance 100 ml 1936.88 ml medications Current Medications Medications Dose Ordered Sig/Carmen Route Start Time Stop Time Status Last Admin Dose Admin Sodium Chloride 1,000 ml @ 120 mls/hr Q8H20M IV 02/21/25 22:00 02/23/25 00:05 120 MLS/HR Acetaminophen 325 mg Q4HP PRN PO 02/21/25 22:00 Acetaminophen/ Hydrocodone Bitart 1 tab Q4HP PRN PO 02/21/25 22:00 02/23/25 14:19 1 TAB Ondansetron HCl 4 mg Q4HP PRN IV 02/21/25 22:00 02/23/25 10:58 4 MG Morphine Sulfate 2 mg Q4HPRN PRN IV 02/21/25 22:00 02/23/25 10:58 2 MG Nitroglycerin 0.4 mg Q5MINP PRN SL 02/21/25 22:00 Morphine Sulfate 2 mg Q30M PRN IV 02/21/25 22:00 Piperacillin Sod/ Tazobactam Sod 100 ml @ 25 mls/hr Q8HR IV 02/21/25 22:00 02/23/25 14:18 25 MLS/HR Gabapentin 1,000 mg QID PO 02/22/25 14:05 Hold Famotidine 20 mg Q12HR IV 02/22/25 22:00 02/23/25 10:57 20 MG Enoxaparin Sodium 40 mg DAILY SC 02/23/25 10:00 02/23/25 10:59 40 MG Diagnostic Test (Pha) 1 strip ACHS 02/22/25 17:00 02/23/25 10:59 1 STRIP Insulin Human Regular HS SC 02/22/25 22:00 Insulin Human Regular AC SC 02/22/25 17:00 02/23/25 11:06 6 UNITS Dextrose 50 ml UD PRN IV 02/22/25 13:30 objective General Appearance: alert, no distress HEENT: EOMI, PERRLA, normal external inspect of ears, no icterus, no nasal drainage Neck: no carotid bruit, no jugular venous distention (JVD), no lymphadenopathy Chest: normal thorax Respiratory: clear to auscultation, normal air movement Cardiovascular: regular rate and rhythm, no diastolic murmur, no jugular venous distention (JVD), no rub, no systolic murmur Abdominal: soft, no hepatomegaly, no mass, no splenomegaly, no tenderness Genitourinary: grossly normal external Musculoskeletal: no joint tenderness, no swelling Extremities: normal pulses, no calf tenderness, no clubbing, no cyanosis, no edema Skin: no bruising, no jaundice, no rash Neurological: alert, No focal deficit laboratory and microbiology Laboratory Tests 02/22/25 05:06 Test 02/22/25 05:06 Range/Units Serum Glucose 131 H 74-106 mg/dL Problem List 1. Colitis Monitor, GI consult, IV abx, IV fluids, PPI 2. Atypical lung infection Monitor, IV abx, pulmonary consult 3. DM II Monitor, insulin ss 4. Pulmonary nodule Monitor, pulmonary consult, DVT prophylaxis Assessment/Plan Subjective: Patient is awake and alert, affect appropriate. Objective: Patient was admitted for abdominal pain related to colitis. She is currently on antibiotics with Zosyn. No nausea reported at this time. Patient possibly also has a lung infection; Pulmonary has been consulted and Med-Neb treatments have been ordered. Plan: Continue current treatment. Provide supplemental O2 as needed. Plan discussed with: Patient, Other BARB GLASS NP Feb 23, 2025 14:58
--- NOTE | 2025-02-23 15:46 | DVHINCON2 ---
Date of service: Feb 23, [address] Coates Reason for Consultation Abdominal pain nausea vomiting constipation History of Present Illness This 50 old presented with complaints of abdominal pain nausea vomiting patient had some food in eaten in the morning around 2:00 a.m. or so and then developed complaints of severe nausea anorexia and vomiting. Patient also had one episode of diarrhea apparently denied any fever chills or other systemic symptoms. 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 Patient has history of ulcer disease. The reason for the GI consult is for possible GI symptoms Patient has history of ulcer disease in the past when he was 19 Past Medical History Gastric ulcer disease when he was 19 Past Surgical History None Family History: Alcoholism G8 FATHER, Onset:Unknown Arthritis G8 MOTHER, Onset:Unknown Hypertension G8 FATHER, Onset:Unknown Family History Noncontributory Social History Denies smoking drinking Allergies: Coded Allergies: NO KNOWN ALLERGIES (Unverified , 01/29/18) Home Meds Reported Medications Metoclopramide Hcl (Metoclopramide Hcl) 10 Mg Tab, 10 MG PO for nausea for 30 Days, MG 06/26/18 Metformin Hydrochloride (Metformin Hcl) 500 Mg Tab, 1000 MG PO BID for 30 Days, MG 06/26/18 Pancreatic Enzymes (Creon) 12,000 [place], [address] UNT PO, CAP 02/02/18 Meclizine Hcl (Meclizine Hcl) 25 Mg Tab, 25 MG PO BIDP for 30 Days, MG 02/02/18 Gabapentin (Gabapentin) 600 Mg Tab, 1000 MG PO QID for 30 Days, MG 02/02/18 Current Medications Current Medications Medications (Trade) Dose Ordered Sig/Carmen Route PRN Reason Start Time Stop Time Status Last Admin Famotidine (Pepcid Injection) 20 mg Q12HR IV 02/22/25 22:00 02/23/25 10:57 Enoxaparin Sodium (Lovenox) 40 mg DAILY SC 02/23/25 10:00 02/23/25 10:59 Diagnostic Test (Pha) (Accu-Chek Comfort Curve T) 1 strip ACHS 02/22/25 17:00 02/23/25 10:59 Insulin Human Regular (InsuLIN R) HS SC 02/22/25 22:00 Insulin Human Regular (InsuLIN R) AC SC 02/22/25 17:00 02/23/25 11:06 Review of Systems Non contribute Vital Signs Moderately built and nourished male slightly on the wasted side in no acute distress vital signs stable Vital Signs Date Time Temp Pulse Resp B/P (MAP) Pulse Ox O2 Delivery O2 Flow Rate FiO2 02/23/25 12:37 98.4 87 16 164/94 (117) 99 98.4 02/23/25 08:00 Room Air* 0 21 Physical Exam Moderately built and nourished in no acute distress Until stable Clear Vascular unremarkable abdomen is soft no tenderness except minimally in the epigastrium no rigidity no guarding Extremity some pain in the left lower leg on the dorsal side of the food Neuro grossly intact Labs/Diagnostic Data Labs Test 02/23/25 10:45 02/22/25 05:06 02/21/25 20:21 Range/Units POC Glucose 226 H 70-106 mg/dl White Blood Count 11.8 H 4.4-10.8 10^3/uL Red Blood Count 4.79 4.5-5.90 10^6/uL Hemoglobin 13.6 13.5-17.5 g/dL Hematocrit 40.4 L 41.0-53.0 % Mean Corpuscular Volume 84.3 80.0-100.0 fL Mean Corpuscular Hemoglobin 28.4 28.0-32.0 pg Mean Corpuscular Hemoglobin Concent 33.8 32.0-36.0 g/dL Red Cell Distribution Width 14.4 H 11.8-14.3 % Platelet Count 164 140-450 10^3/uL Mean Platelet Volume 10.4 6.9-10.8 fL Neutrophils (%) (Auto) 83.0 H 37.0-80.0 % Lymphocytes (%) (Auto) 9.2 L 10.0-50.0 % Monocytes (%) (Auto) 7.4 0.0-12.0 % Eosinophils (%) (Auto) 0.0 0.0-7.0 % Basophils (%) (Auto) 0.4 0.0-2.0 % Neutrophils # (Auto) 9.8 H 1.6-8.6 10 ^3/uL Lymphocytes # (Auto) 1.1 0.4-5.4 10 ^3/uL Monocytes # (Auto) 0.9 0-1.3 10 ^3/uL Eosinophils # (Auto) 0 0-0.8 10 ^3/uL Basophils # (Auto) 0 0-0.2 10 ^3/uL Nucleated Red Blood Cells 0.0 % Sodium Level 144 136-145 mmol/L Potassium Level 3.5 3.5-5.1 mmol/L Chloride Level 105 98-107 mmol/L Carbon Dioxide Level 28 20-31 mmol/L Anion Gap 11 5-15 Blood Urea Nitrogen 11 9-23 mg/dL Creatinine 0.94 0.700-1.30 mg/dL Glomerular Filtration Rate Calc 99 >90 mL/min BUN/Creatinine Ratio 11.7 10.0-20.0 Serum Glucose 131 H 74-106 mg/dL Calcium Level 9.3 8.7-10.4 mg/dL Total Bilirubin 1.5 H 0.2-1.0 mg/dL Aspartate Amino Transferase (AST) 35 13-40 U/L Alanine Aminotransferase (ALT) 18 7-40 U/L Alkaline Phosphatase 148 H 46-116 U/L Total Protein 7.3 5.7-8.2 g/dL Albumin 4.3 3.2-4.8 g/dL Urine Color Yellow Yellow Urine Clarity Turbid H Clear Urine pH 5.5 5.0-9.0 Urine Specific [place] 1.027 1.001-1.035 Urine Protein 1+ H Negative Urine Ketones 2+ H Negative Urine Blood Negative Negative /uL Urine Nitrite Negative Negative Urine Bilirubin Negative Negative Urine Urobilinogen Normal Negative mg/dL Urine Leukocyte Esterase 1+ Negative /uL Urine RBC None seen 0 - 3 /hpf Urine Microscopic WBC 15 H 0-3 /HPF Urine Squamous Epithelial Cells Few <5 /hpf Urine Bacteria None seen None Seen /hpf Urine Hyaline Casts Few 0 - 2 /lpf Urine Mucus Few None Seen Urine Glucose 1+ H Normal mg/dL Assessment 50-year-old with nausea vomiting abdominal pain history of some food ingestion at work and after that got nausea vomiting history of pancreatitis in the past history of ulcer disease in the past. Physical examination is unremarkable scan showed possible mild nonspecific colitis Clinical impression Possible gastroenteritis Plan/Recommendation Treatment symptomatically with PPIs stool studies antibiotics and see the response Symptoms persist may need EGD evaluation because of the history of ulcer disease in the past Thank you Dr. Ashley Blake discussed with: Patient MATEO CONNORS MD Feb 23, 2025 15:46
[2025-02-24 01:00] VITALS: BP 134/95; PULSE 88; RESP 15; TEMP 98.2; O2SAT 96
[2025-02-24 08:00] VITALS: PULSE 80; RESP 16; O2SAT 95
[2025-02-24 09:00] VITALS: BP 148/94; PULSE 80; RESP 16; TEMP 98.3; O2SAT 95
[2025-02-24 13:00] VITALS: BP 144/98; PULSE 92; RESP 17; TEMP 98.2; O2SAT 98
--- NOTE | 2025-02-24 14:41 | DVHPN2 ---
Progress Note - Dictate Date Seen: Feb 24, 2025 Medical Necessity Reason Pt with a Central, PICC or Fol: No vital signs Vital Sign Date Time Temp Pulse Resp B/P (MAP) Pulse Ox O2 Delivery O2 Flow Rate FiO2 02/24/25 14:17 83 16 123/99 02/24/25 13:00 98.2 98 98.2 02/24/25 08:00 Room Air* 0 21 Total Intake and Output 02/23/25 02/23/25 02/24/25 15:00 23:00 07:00 Intake Total 100 ml 750 ml 340 ml Balance 100 ml 750 ml 340 ml medications Current Medications Medications Dose Ordered Sig/Carmen Route Start Time Stop Time Status Last Admin Dose Admin Sodium Chloride 1,000 ml @ 120 mls/hr Q8H20M IV 02/21/25 22:00 02/23/25 00:05 120 MLS/HR Acetaminophen 325 mg Q4HP PRN PO 02/21/25 22:00 Acetaminophen/ Hydrocodone Bitart 1 tab Q4HP PRN PO 02/21/25 22:00 02/24/25 11:10 1 TAB Ondansetron HCl 4 mg Q4HP PRN IV 02/21/25 22:00 02/24/25 08:51 4 MG Morphine Sulfate 2 mg Q4HPRN PRN IV 02/21/25 22:00 02/24/25 14:17 2 MG Nitroglycerin 0.4 mg Q5MINP PRN SL 02/21/25 22:00 Morphine Sulfate 2 mg Q30M PRN IV 02/21/25 22:00 Piperacillin Sod/ Tazobactam Sod 100 ml @ 25 mls/hr Q8HR IV 02/21/25 22:00 02/24/25 14:17 25 MLS/HR Gabapentin 1,000 mg QID PO 02/22/25 14:05 Hold Famotidine 20 mg Q12HR IV 02/22/25 22:00 02/24/25 08:51 20 MG Enoxaparin Sodium 40 mg DAILY SC 02/23/25 10:00 02/24/25 08:51 40 MG Diagnostic Test (Pha) 1 strip ACHS 02/22/25 17:00 02/24/25 11:10 1 STRIP Insulin Human Regular HS SC 02/22/25 22:00 02/23/25 22:28 4 UNITS Insulin Human Regular AC SC 02/22/25 17:00 02/24/25 11:15 4 UNITS Dextrose 50 ml UD PRN IV 02/22/25 13:30 objective General Appearance: alert, no distress HEENT: EOMI, PERRLA, normal external inspect of ears, no icterus, no nasal drainage Neck: no carotid bruit, no jugular venous distention (JVD), no lymphadenopathy Chest: normal thorax Respiratory: clear to auscultation, normal air movement Cardiovascular: regular rate and rhythm, no diastolic murmur, no jugular venous distention (JVD), no rub, no systolic murmur Abdominal: soft, no hepatomegaly, no mass, no splenomegaly, no tenderness Genitourinary: grossly normal external Musculoskeletal: no joint tenderness, no swelling Extremities: normal pulses, no calf tenderness, no clubbing, no cyanosis, no edema Skin: no bruising, no jaundice, no rash Neurological: alert, No focal deficit laboratory and microbiology Laboratory Tests 02/22/25 05:06 Test 02/22/25 05:06 Range/Units Serum Glucose 131 H 74-106 mg/dL Problem List 1. Colitis Monitor, GI consult, IV abx, IV fluids, PPI 2. Atypical lung infection Monitor, IV abx, pulmonary consult 3. DM II Monitor, insulin ss 4. Pulmonary nodule Monitor, pulmonary consult, DVT prophylaxis Assessment/Plan Subjective: Patient is awake and alert. Objective: Patient was admitted for abdominal pain related to colitis. Patient states he is not having any diarrhea. He continues to be on Zosyn and states he feels better and had his first meal today. Plan: Continue current treatment with Zosyn for antibiotics. Continue insulin sliding scale for diabetes. Possible plan for discharge tomorrow. Plan discussed with: Patient, Other BARB GLASS NP Feb 24, 2025 14:41
[2025-02-24 15:56] LABS: Hematocrit 43.0 % (41.0-53.0); Hemoglobin 14.6 g/dL (13.5-17.5); Mean Corpuscular Hemoglobin 28.4 pg (28.0-32.0); Mean Corpuscular Volume 83.7 fL (80.0-100.0); Nucleated Red Blood Cells % 0.1 %
[2025-02-24 16:05] LABS: Alanine Aminotransferase 20 U/L (7-40); Albumin 4.0 g/dL (3.2-4.8); Alkaline Phosphatase 121 U/L (46-116); Anion Gap 9 (5-15); BUN/Creatinine Ratio 11.6 (10.0-20.0); Blood Urea Nitrogen 10 mg/dL (9-23); Calcium 9.1 mg/dL (8.7-10.4); Carbon Dioxide 27 mmol/L (20-31); Chloride 98 mmol/L (98-107); Glucose 223 mg/dL (74-106); Magnesium 2.1 mg/dL (1.6-2.6); Potassium 4.3 mmol/L (3.5-5.1); Sodium 134 mmol/L (136-145); Total Protein 7.0 g/dL (5.7-8.2)
[2025-02-24 16:23] LABS: Bilirubin, Total 2.2 mg/dL (0.2-1.0)
[2025-02-24 17:00] VITALS: BP 119/87; PULSE 85; RESP 17; TEMP 97.5; O2SAT 100
--- NOTE | 2025-02-24 18:20 | DVHPN2 ---
Progress Note - Dictate Date Seen: Feb 24, 2025 Has the PT tested + for MRSA If YES, has PT been informed?: No Medical Necessity Reason Pt with a Central, PICC or Fol: No Subjective Patient is feeling much better no nausea no vomiting no abdominal pain tolerating feeding GERD vital signs Vital Sign Date Time Temp Pulse Resp B/P (MAP) Pulse Ox O2 Delivery O2 Flow Rate FiO2 02/24/25 17:00 97.5 85 17 119/87 (98) 100 97.5 02/24/25 08:00 Room Air* 0 21 Total Intake and Output 02/23/25 02/23/25 02/24/25 15:00 23:00 07:00 Intake Total 100 ml 750 ml 340 ml Balance 100 ml 750 ml 340 ml medications Current Medications Medications Dose Ordered Sig/Carmen Route Start Time Stop Time Status Last Admin Dose Admin Sodium Chloride 1,000 ml @ 120 mls/hr Q8H20M IV 02/21/25 22:00 02/23/25 00:05 120 MLS/HR Acetaminophen 325 mg Q4HP PRN PO 02/21/25 22:00 Acetaminophen/ Hydrocodone Bitart 1 tab Q4HP PRN PO 02/21/25 22:00 02/24/25 17:32 1 TAB Ondansetron HCl 4 mg Q4HP PRN IV 02/21/25 22:00 02/24/25 08:51 4 MG Morphine Sulfate 2 mg Q4HPRN PRN IV 02/21/25 22:00 02/24/25 14:17 2 MG Nitroglycerin 0.4 mg Q5MINP PRN SL 02/21/25 22:00 Morphine Sulfate 2 mg Q30M PRN IV 02/21/25 22:00 Piperacillin Sod/ Tazobactam Sod 100 ml @ 25 mls/hr Q8HR IV 02/21/25 22:00 02/24/25 14:17 25 MLS/HR Gabapentin 1,000 mg QID PO 02/22/25 14:05 Hold Famotidine 20 mg Q12HR IV 02/22/25 22:00 02/24/25 08:51 20 MG Enoxaparin Sodium 40 mg DAILY SC 02/23/25 10:00 02/24/25 08:51 40 MG Diagnostic Test (Pha) 1 strip ACHS 02/22/25 17:00 02/24/25 17:00 1 STRIP Insulin Human Regular HS SC 02/22/25 22:00 02/23/25 22:28 4 UNITS Insulin Human Regular AC SC 02/22/25 17:00 02/24/25 17:35 9 UNITS Dextrose 50 ml UD PRN IV 02/22/25 13:30 Metformin HCl 1,000 mg BID PO 02/24/25 22:00 objective Abdomen is soft mild tenderness in the epigastrium no rigidity no guarding no masses bowel sounds are normal laboratory and microbiology Laboratory Tests 02/24/25 15:33 Test 02/24/25 15:33 Range/Units Serum Glucose 223 H 74-106 mg/dL Assessment/Plan 50-year-old with nausea vomiting abdominal pain history of some food ingestion at work and after that got nausea vomiting history of pancreatitis in the past history of ulcer disease in the past. Physical examination is unremarkable scan showed possible mild nonspecific colitis Clinical impression Possible gastroenteritis Feeling better we will continue to increase the feeds and symptomatic treatment and see Recommend to follow for pancreas also closely Thank you Dr. damian Plan discussed with: Patient MATEO DAMIAN MD Feb 24, 2025 18:20
[2025-02-24 21:00] VITALS: BP 143/101; PULSE 78; RESP 18; TEMP 98.1; O2SAT 98
[2025-02-25 01:00] VITALS: BP 149/85; PULSE 77; RESP 18; TEMP 98; O2SAT 100
[2025-02-25 05:00] VITALS: BP 113/88; PULSE 84; RESP 18; TEMP 98.6; O2SAT 100
[2025-02-25 08:06] LABS: Hematocrit 42.5 % (41.0-53.0); Hemoglobin 14.5 g/dL (13.5-17.5); Mean Corpuscular Hemoglobin 28.6 pg (28.0-32.0); Mean Corpuscular Volume 84.1 fL (80.0-100.0); Nucleated Red Blood Cells % 0.1 %
[2025-02-25 08:22] LABS: Alanine Aminotransferase 18 U/L (7-40); Albumin 3.9 g/dL (3.2-4.8); Alkaline Phosphatase 108 U/L (46-116); Anion Gap 9 (5-15); BUN/Creatinine Ratio 11.3 (10.0-20.0); Blood Urea Nitrogen 9 mg/dL (9-23); Calcium 8.9 mg/dL (8.7-10.4); Carbon Dioxide 27 mmol/L (20-31); Chloride 101 mmol/L (98-107); Magnesium 2.0 mg/dL (1.6-2.6); Potassium 3.9 mmol/L (3.5-5.1); Sodium 137 mmol/L (136-145); Total Protein 6.2 g/dL (5.7-8.2)
[2025-02-25 08:26] LABS: Bilirubin, Total 1.7 mg/dL (0.2-1.0); Glucose 225 mg/dL (74-106)
[2025-02-25 08:29] VITALS: PULSE 74; RESP 16; O2SAT 99
[2025-02-25 09:00] VITALS: BP 120/85; PULSE 74; RESP 16; TEMP 97.9; O2SAT 99
[2025-02-25] MEDS ORDERED: CIPR-173 PO (14:09)
[2025-02-25] MEDS ORDERED: METR-344 PO (14:09)
--- NOTE | 2025-02-25 14:10 | DVHDS2 ---
Discharge Summary Date of Admission Feb 21, 2025 at 21:48 Date of Discharge: Feb 25, 2025 Labs/Diagnostic Data: Laboratory Results Test 02/25/25 10:52 02/25/25 07:15 02/21/25 20:21 POC Glucose 220 mg/dl (70-106) White Blood Count 6.8 10^3/uL (4.4-10.8) Red Blood Count 5.05 10^6/uL (4.5-5.90) Hemoglobin 14.5 g/dL (13.5-17.5) Hematocrit 42.5 % (41.0-53.0) Mean Corpuscular Volume 84.1 fL (80.0-100.0) Mean Corpuscular Hemoglobin 28.6 pg (28.0-32.0) Mean Corpuscular Hemoglobin Concent 34.0 g/dL (32.0-36.0) Red Cell Distribution Width 14.2 % (11.8-14.3) Platelet Count 139 10^3/uL (140-450) Mean Platelet Volume 10.4 fL (6.9-10.8) Neutrophils (%) (Auto) 57.2 % (37.0-80.0) Lymphocytes (%) (Auto) 28.8 % (10.0-50.0) Monocytes (%) (Auto) 12.1 % (0.0-12.0) Eosinophils (%) (Auto) 1.0 % (0.0-7.0) Basophils (%) (Auto) 0.9 % (0.0-2.0) Neutrophils # (Auto) 3.9 10 ^3/uL (1.6-8.6) Lymphocytes # (Auto) 2.0 10 ^3/uL (0.4-5.4) Monocytes # (Auto) 0.8 10 ^3/uL (0-1.3) Eosinophils # (Auto) 0.1 10 ^3/uL (0-0.8) Basophils # (Auto) 0.1 10 ^3/uL (0-0.2) Nucleated Red Blood Cells 0.1 % Sodium Level 137 mmol/L (136-145) Potassium Level 3.9 mmol/L (3.5-5.1) Chloride Level 101 mmol/L (98-107) Carbon Dioxide Level 27 mmol/L (20-31) Anion Gap 9 (5-15) Blood Urea Nitrogen 9 mg/dL (9-23) Creatinine 0.80 mg/dL (0.700-1.30) Glomerular Filtration Rate Calc 108 mL/min (>90) BUN/Creatinine Ratio 11.3 (10.0-20.0) Serum Glucose 225 mg/dL (74-106) Calcium Level 8.9 mg/dL (8.7-10.4) Phosphorus Level 3.0 mg/dL (2.4-5.1) Magnesium Level 2.0 mg/dL (1.6-2.6) Total Bilirubin 1.7 mg/dL (0.2-1.0) Aspartate Amino Transferase (AST) 18 U/L (13-40) Alanine Aminotransferase (ALT) 18 U/L (7-40) Alkaline Phosphatase 108 U/L (46-116) Total Protein 6.2 g/dL (5.7-8.2) Albumin 3.9 g/dL (3.2-4.8) Urine Color Yellow (Yellow) Urine Clarity Turbid (Clear) Urine pH 5.5 (5.0-9.0) Urine Specific [place] 1.027 (1.001-1.035) Urine Protein 1+ (Negative) Urine Ketones 2+ (Negative) Urine Blood Negative /uL (Negative) Urine Nitrite Negative (Negative) Urine Bilirubin Negative (Negative) Urine Urobilinogen Normal mg/dL (Negative) Urine Leukocyte Esterase 1+ /uL (Negative) Urine RBC None seen /hpf (0 - 3) Urine Microscopic WBC 15 /HPF (0-3) Urine Squamous Epithelial Cells Few /hpf (<5) Urine Bacteria None seen /hpf (None Seen) Urine Hyaline Casts Few /lpf (0 - 2) Urine Mucus Few (None Seen) Urine Glucose 1+ mg/dL (Normal) Other Laboratory Tests 02/25/25 07:15 Brief Hx & Hospital Course: 50 yo male patient c/o nausea and vomiting. Patient denies having these symptoms in the past. While in the emergency department the patient was evaluated by the provider, As per provider: Labs, vital signs, and imagining monitored. Patient was admitted for abdominal pain relating to colitis. Patient has diabetes type 2 and diabetes was controlled on insulin sliding scale. Patient received IV antibiotics with Zosyn. He was discharged home on Cipro and Flagyl for additional 10 days. He is to follow-up with PCP in 1 week. The patient received proper medical treatment and medications. Vital signs, Imaging and Laboratory Work was monitored. All consults recommendations were followed as provided. There were no complaints or new complaints upon discharge, all questions and concerns were answered. Patient was advised to return to the ER or call 911 if any headaches, dizziness, shortness of breath, chest pain, bleeding, fevers, or worsening of medical condition. Patient/Family was counseled about treatment plan, medications, possible side effects, patientverbalized understanding. All questions were answered to the best of my ability. The patient symptoms improved and they are okay to be DC. Condition at Discharge: Good Final Diagnosis/Problems List 1.Colitis 2. Atypical lung infection 3. DM II 4. Pulmonary nodule Discharge Disposition: Home Discharge Instruct/Medications Diet: Consistent carbohydrate, Cardiac 2g Na,low cholest Activity: No Restrictions, As Tolerated Follow Up/Referral: pcp 1 week Medications: abx 10 days Scheduled Ciprofloxacin Hcl (Cipro), 1 TAB PO BID Gabapentin (Gabapentin), 1,000 MG PO QID, (Reported) Meclizine Hcl (Meclizine Hcl), 25 MG PO BIDP, (Reported) Metformin Hydrochloride (Metformin Hcl), 1,000 MG PO BID, (Reported) Metronidazole (Flagyl), 1 TAB PO TID Miscellaneous Medications Metoclopramide Hcl (Metoclopramide Hcl), 10 MG PO, (Reported) Pancreatic Enzymes (Creon), 12,000 UNT PO, (Reported) Discharge Statement: "Patient was advised to return to the ER or call 911 if any headaches, dizziness, shortness of breath, chest pain, abdominal pain, bleeding, fevers, or worsening of medical condition. Patient was counseled about treatment plan, medications, possible side effects, patientverbalized understanding. All questions were answered to the best of my ability. This discharge took greater then 30 minutes in planning, reviewing documentation, counseling the patient, and discussing with other team members." ASSESSMENT ASSESSMENT Assessment Colitis BARB GLASS NP Feb 25, 2025 14:10
[2025-02-25 15:03] VITALS: BP 104/78; PULSE 80; RESP 16; TEMP 98.1; O2SAT 99
== END 2025-02-25 16:15 | disposition home or self-care (01) | DRG 248 ==
LOC: EDBD 11:00 → EDUNIT# 11:00 → ER 11:00 → OVERFLOW 21:48 → WEST WING 02-22 21:59
PROVIDERS: ADMIT Nurse Practitioner; ATTEND Nurse Practitioner
DX: A04.9 Bacterial intestinal infection, unspecified (principal); J15.69 Pneumonia due to other Gram-negative bacteria; E11.9 Type 2 diabetes mellitus without complications; J15.9 Unspecified bacterial pneumonia; R91.1 Solitary pulmonary nodule; Z82.49 Family history of ischemic heart disease and other diseases of the circulatory system; Z79.4 Long term (current) use of insulin; Z87.11 Personal history of peptic ulcer disease; Z81.1 Family history of alcohol abuse and dependence; Z82.61 Family history of arthritis; Z79.899 Other long term (current) drug therapy
CPT/HCPCS: 36415; 74176; 80048; 80053; 81001; 82962; 83735; 84100; 85025; 96361; 96374; 96375; G0378; J1815; J2405; J2543; J3490